=== PATIENT | male | born 1960 | race Caucasian/White ===

== ENCOUNTER 2019-03-12 14:56 | Emergency (ER) | payer MEDICARE, MEDICAID ==
[~2019-03-12] VITALS: Ht 167.6 cm; Wt 81.6 kg
[2019-03-12 15:05] VITALS: BP 127/66
[2019-03-12] MEDS ORDERED: SODIUM CHLORIDE 0.9% 500 ML IVB ONE (15:07)
[2019-03-12] MEDS ORDERED: ONDANSETRON HCL 4 MG/2 ML VIAL IV ONE (15:15)
[2019-03-12] MEDS ORDERED: MORPHINE SULFATE 4 MG/ML SYR/VIAL IV ONE (15:15)
[2019-03-12] MEDS ORDERED: FAMOTIDINE (10MG/ML) 2ML VL IV ONE (15:15)
[2019-03-12 15:48] LABS: Basophils # (auto) 0.1 uL; Eosinophils # (auto) 0 uL; Monocytes # (auto) 0.3 uL
[2019-03-12 15:51] LABS: Basophils % (auto) 0.6 % (0.0-2.0); Eosinophils % (auto) 0.1 % (0.0-7.0); Hematocrit 39.5 % (41.0-53.0); Hemoglobin 12.2 g/dL (13.5-17.5); Lymphocytes # (auto) 1.3 uL; Lymphocytes % (auto) 13.7 % (10.0-50.0); Mean Corpuscular Hemoglobin 21.4 pg (28.0-32.0); Mean Corpuscular Volume 69.2 fL (80.0-100.0); Monocytes % (auto) 3.4 % (0.0-12.0); Neutrophils # (auto) 7.6 uL; Neutrophils % (auto) 82.2 % (37.0-80.0); Platelet Count (auto) 255 10^3/uL (140-450); White Blood Cell 9.2 10^3/uL (4.4-10.8)
[2019-03-12 15:58] LABS: Red Cell Distribution Width 21.8 % (11.8-14.3)
[2019-03-12 16:08] LABS: Alanine Aminotransferase 25 U/L (16-61); Albumin 3.4 g/dL (3.4-5.0); Anion Gap 22 (5-15); Aspartate Aminotransferase 24 U/L (15-37); Blood Urea Nitrogen 14 mg/dL (7-18); Calcium 8.5 mg/dL (8.5-10.1); Carbon Dioxide 17 mmol/L (21-32); Chloride 99 mmol/L (98-107); Glucose 288 mg/dL (74-106); Lipase 20 U/L (73-393); Magnesium 1.8 mg/dL (1.6-2.6); Potassium 3.6 mmol/L (3.5-5.1); Sodium 138 mmol/L (136-145)
[2019-03-12 16:13] LABS: Alkaline Phosphatase 110 U/L (45-117); BUN/Creatinine Ratio 17.3; Bilirubin, Total 0.7 mg/dL (0.2-1.0); GFR African American 125 mL/min; GFR Non-African American 103 mL/min
== END 2019-03-12 20:35 | disposition left against medical advice (07) ==
LOC: ER 15:01
DX: R07.89 Other chest pain (principal); F10.20 Alcohol dependence, uncomplicated; E11.9 Type 2 diabetes mellitus without complications; E78.5 Hyperlipidemia, unspecified; I10 Essential (primary) hypertension; E07.9 Disorder of thyroid, unspecified; F17.210 Nicotine dependence, cigarettes, uncomplicated; Z53.29 Procedure and treatment not carried out because of patient's decision for other reasons
CPT/HCPCS: 36415; 71045; 74176; 80053; 80320; 83690; 83735; 84484; 85025; 93005; 94761

== ENCOUNTER 2019-08-08 17:04 | Inpatient (IN) | payer MEDICARE, MEDICAID ==
[~2019-08-08] VITALS: Ht 167.6 cm; Wt 80.6 kg
[2019-08-08] MEDS ORDERED: ONDANSETRON HCL 4 MG/2 ML VIAL IV ONE (17:45)
[2019-08-08] MEDS ORDERED: PANTOPRAZOLE 40 MG/10 ML VIAL INJ IV ONE (17:45)
[2019-08-08 18:02] LABS: Eosinophils # (auto) 0 uL; Hemoglobin 9.3 g/dL (13.5-17.5); Lymphocytes # (auto) 0.7 uL; Monocytes # (auto) 0.4 uL; Monocytes % (auto) 3.9 % (0.0-12.0); Neutrophils # (auto) 8.5 uL
[2019-08-08 18:04] LABS: Basophils # (auto) 0.1 uL; Basophils % (auto) 0.5 % (0.0-2.0); Eosinophils % (auto) 0.1 % (0.0-7.0); Hematocrit 30.5 % (41.0-53.0); Lymphocytes % (auto) 7.5 % (10.0-50.0); Mean Corpuscular Hemoglobin 24.3 pg (28.0-32.0); Mean Corpuscular Hgb Conc. 30.5 g/dL (32.0-36.0); Mean Corpuscular Volume 79.7 fL (80.0-100.0); Platelet Count (auto) 196 10^3/uL (140-450); Red Blood Cells 3.83 10^6/uL (4.5-5.90); Red Cell Distribution Width 20.3 % (11.8-14.3); White Blood Cell 9.7 10^3/uL (4.4-10.8)
[2019-08-08 18:17] LABS: Albumin 2.6 g/dL (3.4-5.0); Calcium 7.2 mg/dL (8.5-10.1); Potassium 4.3 mmol/L (3.5-5.1)
[2019-08-08 18:19] LABS: BUN/Creatinine Ratio 26.2
[2019-08-08 18:26] LABS: Total Protein 4.9 g/dL (6.4-8.2)
[2019-08-08] MEDS ORDERED: MORPHINE SULFATE 4 MG/ML SYR/VIAL IV ONE ×2 (18:45→21:00)
[2019-08-08] MEDS ORDERED: SODIUM CHLORIDE 0.9% 1,000 ML IV ONE ×2 (18:45→19:30)
[2019-08-08] MEDS ORDERED: InsuLIN R (HUMAN) 100 UNITS in SODIUM CHL 0.9% 99 ML IV SCH (21:11)
[2019-08-08] MEDS ORDERED: DEXTROSE (50%) 50ML SYRG IV PRN (21:15)
[2019-08-08] MEDS ORDERED: ONDANSETRON HCL 4 MG/2 ML VIAL IV PRN (21:15)
[2019-08-08] MEDS ORDERED: NITROGLYCERIN 0.4 MG SL TAB SL PRN (21:15)
[2019-08-08] MEDS: SODIUM CHLORIDE 0.9% 1,000 ML IV SCH (21:46)
[2019-08-08] MEDS: OCTREOTIDE ACETATE 500 MCG in SODIUM CHL 0.9% 99 ML IV SCH (22:14)
[2019-08-08] MEDS: ACCU-CHEK COMFORT CURVE STRIP VI SCH (22:17)
[2019-08-08 22:30] LABS: Hematocrit 26.9 % (41.0-53.0); Hemoglobin 8.2 g/dL (13.5-17.5)
[2019-08-08 22:35] LABS: BUN/Creatinine Ratio 29.9; Calcium 6.2 mg/dL (8.5-10.1); Potassium 4.8 mmol/L (3.5-5.1)
[2019-08-08] MEDS ORDERED: SODIUM BICARBONATE 8.4% INJ 50ML SYRINGE ONE (22:49)
[2019-08-08] MEDS ORDERED: CALCIUM GLUC 4.65meq/50ml D5AE 50 ML IV ONE (23:00)
[2019-08-08] MEDS ORDERED: DIGOXIN (250MCG/ML) 2 ML AMPULE IV ONE (23:45)
[2019-08-09] VITALS (22 sets, daily range): BP systolic 97–142; BP diastolic 51–82
[2019-08-09] MEDS: ACCU-CHEK COMFORT CURVE STRIP VI SCH ×8 (00:04→18:00)
[2019-08-09 01:11] LABS: Hematocrit 26.5 % (41.0-53.0); Hemoglobin 8.2 g/dL (13.5-17.5)
[2019-08-09] MEDS ORDERED: SODIUM CHLORIDE 0.9% 1,000 ML IV SCH ×2 (01:11→03:11)
[2019-08-09] MEDS: SODIUM CHLORIDE 0.9% 1,000 ML IV SCH ×2 (01:11→07:15)
[2019-08-09 01:24] LABS: INR 1.12 (0.9-1.15); Partial Thromboplastin Time 26.8 sec (23.64-32.05)
[2019-08-09 01:30] LABS: BUN/Creatinine Ratio 33.3; Calcium 6.6 mg/dL (8.5-10.1); Potassium 3.9 mmol/L (3.5-5.1)
[2019-08-09] MEDS ORDERED: InsuLIN R (HUMAN) 100 UNITS in SODIUM CHL 0.9% 99 ML IV SCH (01:43)
[2019-08-09] MEDS ORDERED: LORazepam 2MG/ML-1ML VIAL IV ONE (01:45)
[2019-08-09] MEDS ORDERED: LEVOFLOXACIN 500MG 100 ML IV ONE (02:00)
[2019-08-09] MEDS ORDERED: SODIUM CHLORIDE 0.9% 500 ML IV ONE (03:15)
[2019-08-09] MEDS ORDERED: SODIUM BICARBONATE 50ML VIAL 50 ML in SOD CHL 0.45% 1,000 ML IV SCH (03:15)
[2019-08-09] MEDS ORDERED: SODIUM BICARBONATE 50ML VIAL 50 ML in D5W/SOD CHL 0.45% 1,000 ML IV SCH (03:30)
[2019-08-09] MEDS ORDERED: SODIUM BICARBONATE 8.4 % INJ 50ML VIAL IV ONE (03:30)
--- NOTE | 2019-08-09 03:40 | NUR ---
Arrival note Pt arrived to ICU via gurney and placed in room 112. PT attached to ICU monitors. VS 97.5 oral, HR 115 a-fib, rr 20, spo2 96% on 3 lts nc, bp 125/76. Pt able to follow commands. PT can state name, and where pt is at currently. PT unable to provide any other information at this time. PT denies pain. Pt does not appear to be in any distress. PT arrived with blue sweatpants, reynolds t-shirt and poole shoes. All pt belongings at bedside at this time. Received pt on insulin gtt at 3units/hr, D5.45 ns with 1 amp bicarb at 75 mls/hr and sandostatin gtt at 10 mls/hr. Received pt with 18gauge left fa iv, and right hand 22 gauge. IV sites benign. Bed locked and in lowest position, safety precautions in place. Call light within reach, pt oriented to ICU nurse and surroundings. Will monitor pt carefully.
--- NOTE | 2019-08-09 05:24 | NUR ---
emergency contact Pt unable to provide information for emergency contact, states, "i cannot remember right now." Patient says he has no family in the area that can be contacted. No information listed in patient chart.
[2019-08-09 06:36] LABS: Basophils # (auto) 0 uL; Basophils % (auto) 0.1 % (0.0-2.0); Eosinophils # (auto) 0 uL; Hematocrit 22.5 % (41.0-53.0); Hemoglobin 7.2 g/dL (13.5-17.5); Lymphocytes # (auto) 0.2 uL; Lymphocytes % (auto) 1.3 % (10.0-50.0); Mean Corpuscular Hemoglobin 24.3 pg (28.0-32.0); Mean Corpuscular Hgb Conc. 32.2 g/dL (32.0-36.0); Mean Corpuscular Volume 75.4 fL (80.0-100.0); Monocytes # (auto) 0.5 uL; Monocytes % (auto) 2.8 % (0.0-12.0); Neutrophils # (auto) 17.7 uL; Neutrophils % (auto) 95.8 % (37.0-80.0); Nucleated Red Blood Cells % 0.1 %; Platelet Count (auto) 118 10^3/uL (140-450); Red Blood Cells 2.98 10^6/uL (4.5-5.90); White Blood Cell 18.4 10^3/uL (4.4-10.8)
[2019-08-09 06:39] LABS: Urine Bacteria FEW /hpf (None Seen); Urine Blood Negative /uL (Negative); Urine Hyaline Cast MANY /lpf (0 - 2); Urine Mucus FEW (None Seen); Urine WBC 3 /hpf (0 - 3)
[2019-08-09 06:41] LABS: Amphetamine Screen, Urine NEGATIVE (NEGATIVE); Barbiturate Scree,Urine POSITIVE (NEGATIVE); Benzodiazephine Screen, Urine NEGATIVE (NEGATIVE); Cannabinoid Screen, Urine NEGATIVE (NEGATIVE); Cocaine Screen, Urine NEGATIVE (NEGATIVE); Phencyclidine Screen, Urine NEGATIVE (NEGATIVE)
[2019-08-09 06:42] LABS: BUN/Creatinine Ratio 42.9; Calcium 6.6 mg/dL (8.5-10.1); Potassium 3.6 mmol/L (3.5-5.1)
[2019-08-09 06:49] LABS: Opiate Scree,Urine POSITIVE (NEGATIVE)
[2019-08-09] MEDS: OCTREOTIDE ACETATE 500 MCG in SODIUM CHL 0.9% 99 ML IV SCH (07:05)
--- NOTE | 2019-08-09 07:07 | NUR ---
Order from Hospitalist to transfuse 1 unit prbc and to stop Bicarb gtt. Will carry out orders.
[2019-08-09] MEDS ORDERED: CALCIUM GLUC 4.65meq/50ml D5AE 50 ML IV ONE (07:15)
[2019-08-09] MEDS ORDERED: VANCOMYCIN PER PHARMACY 0 MG IV SCH (07:15)
[2019-08-09] MEDS ORDERED: VANCOMYCIN 1,500 MG in D5W 5% 250 ML IV SCH (08:00)
--- NOTE | 2019-08-09 08:45 | NUR ---
RINA PICC LINE RN AT BEDSIDE INSERTING MIDLINE PER PROTOCOL, RN UNABLE TO GET AT LEAST 20 G FOR BLOOD PRODUCT AFTER 2 ATTEMPTS. Addendum: 08/09/19 at 1054 by Gilberto Reina RN PRBC STARTED IN 22 G TO RIGHT WRIST UNTIL MIDLINE IS INSERTED
--- NOTE | 2019-08-09 08:58 | NUR ---
Midline Placement: Patient educated on need for midline placement. All risks and benefits explained and all questions and concerns addresses prior to procedure. 18g/10cm midline inserted via left basilic vein using Ultrasound. Sterile technique utilized. Blood return obtained from lumen and flushed easily with NS using proper technique. Midline secured with saline lock; biodisc and occlusive dressing applied. Primary RN notified. Midline lot #[id number]
--- NOTE | 2019-08-09 09:00 | NUR ---
BLOOD PRODUCT INFUSING TO MIDLINE AT THIS TIME
[2019-08-09 09:31] LABS: BUN/Creatinine Ratio 37.6; Calcium 6.5 mg/dL (8.5-10.1); Potassium 3.9 mmol/L (3.5-5.1)
[2019-08-09] MEDS ORDERED: PANTOPRAZOLE 40 MG/10 ML VIAL INJ IV SCH (10:00)
--- NOTE | 2019-08-09 11:00 | NUR ---
1 UNIT PRBC COMPLETED WITHOUT ANY SIGNS/SYMPTOMS OF REACTION. PATIENT TOLERATED WELL.
[2019-08-09] MEDS ORDERED: LIDOCAINE VISCOUS 2% 15ML UD ONE (13:20)
[2019-08-09] MEDS ORDERED: MIDAZOLAM HCL 5 MG/ML-1ML VIAL ONE (13:20)
[2019-08-09] MEDS ORDERED: fentaNYL CITRATE 100 MCG/2 ML VL ONE (13:21)
[2019-08-09] MEDS ORDERED: diphenhdrAMINE HCL 50 MG/1 ML VL ONE (13:21)
[2019-08-09] MEDS ORDERED: DEXTROSE (50%) 50ML SYRG IV PRN (13:45)
--- NOTE | 2019-08-09 13:45 | NUR ---
DR RODRÍGUEZ AT BEDSIDE DURING RN LUNCH BREAK WITH ZAHRAA RN PROVIDING MEAL RELIEF AND OBTAINED ORDERS FROM DR RODRÍGUEZ.
--- NOTE | 2019-08-09 14:04 | NUR ---
DR TANG COMPLETED EGD. NEW ORDER FOR CLEAR LIQUID DIET AND DC SANDOSTATIN DRIP. PATIENT TOLERATED WELL BUT IS VERY SLEEPY AROUSABLE TO TOUCH, VS STABLE.
--- NOTE | 2019-08-09 14:15 | NUR ---
DECREASED DOPAMINE BY 1 MCG/KG/MIN DUE HR 110-112 WITH FREQUENT PVCS, DOPAMINE CURRENTLY AT 3 MCG/KG/MIN Addendum: 08/09/19 at 1436 by Gilberto Reina RN WRONG PATIENT
[2019-08-09 14:48] LABS: Hematocrit 23.5 % (41.0-53.0); Hemoglobin 7.7 g/dL (13.5-17.5)
[2019-08-09 15:00] LABS: Calcium 6.7 mg/dL (8.5-10.1); Potassium 3.5 mmol/L (3.5-5.1)
[2019-08-09] MEDS: InsuLIN REG 1unit/0.01ml Soln (100units/ml) SC SCH (18:30)
--- NOTE | 2019-08-09 19:00 | NUR ---
OPENING NOTE ASSUMED CARE OF PATIENT AT THIS TIME. REPORT RECEIVED FROM DAY SHIFT RN. POC REVIEWED. HEAD TO TOE ASSESSMENT COMPLETE, SEE INTERVENTION SPREADSHEET FOR COMPLETE DETAILS. RECEIVED PT ALERT AND ORIENTED. VSS EXCEPT HR LOW 100'S. IV SITE BENIGN. CALL LIGHT WITHIN REACH, URINAL AT BEDSIDE. PT SITTING UP IN BED EATING DINNER. PT ON CLEAR LIQUID DIET. PT TOLERATING WELL. BED LOCKED AND IN LOWEST POSITION, SAFETY PRECAUTIONS IN PLACE. WILL MONITOR PT CAREFULLY.
--- NOTE | 2019-08-09 19:25 | NUR ---
REPORT GIVEN TO CALE ADAMS
--- NOTE | 2019-08-09 20:01 | NUR ---
PT COMPLAINING OF SEVER ABD PAIN. ORDER RECEIVED FROM DR RODRÍGUEZ FOR 2 MG MORPHINE Q2 FOR SEVERE PAIN. WILL CARRY OUT ORDER.
--- NOTE | 2019-08-09 20:17 | NUR ---
OOB PT ASSISTED OOB TO USE BEDSIDE COMMODE. PT FLUSHED BEFORE WITNESSED BM. SMALL AMOUNT OF MAROON STOOL NOTED ON TOILET SEAT. PT BACK TO BED WITH NO INCIDENT.
[2019-08-09] MEDS: MORPHINE SULF INJ 2 MG/ML SYRINGE 1ML IV PRN (20:53)
--- NOTE | 2019-08-09 21:00 | NUR ---
PT COMPLAINING OF ABD PAIN 06/10. MORPHINE GIVEN ORDERED. SEE EMAR FOR PAIN REASSESSMENT
[2019-08-09] MEDS: PANTOPRAZOLE 40 MG TAB PO SCH (22:15)
[2019-08-10] VITALS (14 sets, daily range): BP systolic 121–145; BP diastolic 66–91
[2019-08-10] MEDS ORDERED: LEVOFLOXACIN 250MG 50 ML IV SCH
[2019-08-10] MEDS: ACCU-CHEK COMFORT CURVE STRIP VI SCH ×5 (00:04→23:19)
[2019-08-10] MEDS: InsuLIN REG 1unit/0.01ml Soln (100units/ml) SC SCH ×5 (00:04→23:28)
[2019-08-10] MEDS: MORPHINE SULF INJ 2 MG/ML SYRINGE 1ML IV PRN ×5 (01:25→20:10)
--- NOTE | 2019-08-10 01:26 | NUR ---
PT COMPLAINING OF ABD PAIN and back pain 08/10. MORPHINE GIVEN ORDERED. SEE EMAR FOR PAIN REASSESSMENT
[2019-08-10 04:29] LABS: Basophils # (auto) 0 uL; Basophils % (auto) 0.2 % (0.0-2.0); Eosinophils # (auto) 0 uL; Eosinophils % (auto) 0.1 % (0.0-7.0); Hematocrit 23.4 % (41.0-53.0); Hemoglobin 7.7 g/dL (13.5-17.5); Lymphocytes # (auto) 0.8 uL; Lymphocytes % (auto) 7.3 % (10.0-50.0); Mean Corpuscular Hemoglobin 25.3 pg (28.0-32.0); Mean Corpuscular Hgb Conc. 32.9 g/dL (32.0-36.0); Mean Corpuscular Volume 77.1 fL (80.0-100.0); Monocytes # (auto) 0.5 uL; Monocytes % (auto) 4.4 % (0.0-12.0); Neutrophils # (auto) 9.6 uL; Platelet Count (auto) 98 10^3/uL (140-450); Red Blood Cells 3.03 10^6/uL (4.5-5.90); White Blood Cell 10.9 10^3/uL (4.4-10.8)
[2019-08-10 04:47] LABS: Albumin 2.2 g/dL (3.4-5.0); Calcium 7.3 mg/dL (8.5-10.1); Magnesium 1.9 mg/dL (1.6-2.6); Potassium 3.1 mmol/L (3.5-5.1)
[2019-08-10 04:51] LABS: BUN/Creatinine Ratio 28.8; Bilirubin, Total 0.5 mg/dL (0.2-1.0); Total Protein 4.3 g/dL (6.4-8.2)
[2019-08-10] MEDS: SODIUM CHLORIDE 0.9% 1,000 ML IV SCH ×3 (05:34→20:10)
--- NOTE | 2019-08-10 07:20 | NUR ---
REPORT RECEIVED FROM BUSINESS APPLICATIONS SPECIALIST NURSE. PATIENT RESTING IN BED AT THIS TIME. RESPIRATIONS EVEN AND UNLABORED. PATIENT COMPLAINS OF PAIN 8/10 IN BACK, WILL REVIEW MEDICATIONS AND ADMINISTER PAIN MEDICATIONS ORDERED. CALL LIGHT IN REACH, BED IN LOW POSITION. WILL CONTINUE TO MONITOR.
[2019-08-10] MEDS: VANCOMYCIN 1,500 MG in D5W 5% 250 ML IV SCH ×2 (08:20→20:10)
--- NOTE | 2019-08-10 10:10 | NUR ---
DR TANG AT BEDSIDE TO ASSESS PATIENT AND DISCUSS PLAN OF CARE. MD AWARE OF HGB LEVEL, NO NEW ORDERS AT THIS TIME. CONTINUE TO MONITOR HGB. Addendum: 08/10/19 at 1350 by Kalyn Rose RN PER ADVANCE DIET ORDERED
[2019-08-10] MEDS: cefTRIAXone 1GM/50ML D5W 50 ML IV SCH (10:12)
[2019-08-10] MEDS: PANTOPRAZOLE 40 MG TAB PO SCH ×2 (10:12→23:19)
--- NOTE | 2019-08-10 11:09 | NUR ---
PAGED DR RODRÍGUEZ FOR POTASSIUM LEVEL 3.1 AWAITING CALL BACK.
[2019-08-10] MEDS: FOLIC ACID 1 MG, MULTIPLE VITAMIN 10 ML, MAGNESIUM SULF SDV 50% 8 MEQ, THIAMINE INJ 100... INJ SCH ×5 (11:58)
--- NOTE | 2019-08-10 13:02 | NUR ---
DR RODRÍGUEZ AT BEDSIDE TO ASSESS PATIENT AND DISCUSS PLAN OF CARE. PER MD PATIENT TO GO TO TELE. MD REVIEWED AND NOTIFIED OF LAB LEVELS. POTASSIUM REPLACEMENT NOTED IN CHART.
[2019-08-10] MEDS ORDERED: POTASSIUM CHLORIDE 40 MEQ, LIDOCAINE 1% (LOCAL ANESTH.) 4 ML in SODIUM CHL 0.9% 100 ML IV ONE (13:30)
--- NOTE | 2019-08-10 14:55 | NUR ---
REPORT GIVEN TO SYEDA ADAMS FROM TELEMETRY FLOOR. PATIENT TO GO TO ROOM 216B CONNECTED TO TELEMETRY BOX 33
--- NOTE | 2019-08-10 15:25 | NUR ---
TRANSFER PT TRANSFERRED VIA WHEELCHAIR TO ROOM 216B VIA WHEELCHAIR ON TELE BOX 33, PORTABLE O2 3L NC. RECEIVING NURSE SYEDA AT BEDSIDE. NO SIGNS OF DISTRESS NOTED.
--- NOTE | 2019-08-10 15:26 | NUR ---
ICU patient trans to floor JUAN CARLOS BERMAN transfered to 216 B via wheelchair with portable 02. All patient medications and personal belongings transferred with patient to receiving floor. Report receieved prior to arrival. Assuming care of patient at this time. Patient shows no signs or symptoms of shortness of breath or distress. Instructed patient on the continued plan of care. Will continue to round hourly and as needed.
--- NOTE | 2019-08-10 19:04 | NUR ---
Closing Shift Note Patient is resting in bed. Patient shows no signs or symptoms of distress. Report given to Celso, night assistant RN. Will endorse care to ANGIE Houston.
[2019-08-11] MEDS: MORPHINE SULF INJ 2 MG/ML SYRINGE 1ML IV PRN ×4 (02:14→20:20)
[2019-08-11 05:00] VITALS: BP 129/87
[2019-08-11 05:25] LABS: Albumin 2.4 g/dL (3.4-5.0); BUN/Creatinine Ratio 10.7; Calcium 7.6 mg/dL (8.5-10.1); Potassium 3.3 mmol/L (3.5-5.1)
[2019-08-11 05:27] LABS: Bilirubin, Total 0.4 mg/dL (0.2-1.0); Total Protein 4.7 g/dL (6.4-8.2)
[2019-08-11] MEDS: InsuLIN REG 1unit/0.01ml Soln (100units/ml) SC SCH ×3 (06:29→18:04)
[2019-08-11] MEDS: ACCU-CHEK COMFORT CURVE STRIP VI SCH ×3 (06:29→17:44)
--- NOTE | 2019-08-11 07:30 | NUR ---
Opening Shift Note Assuming care of patient at this time. Patient is awake and alert. Patient shows no signs or symptoms of distress or shortness of breath. Bed is locked and lowered with side rails up x2. Instructed patient on the plan of care for today and to call for assistance as needed. Call light within reach. Will continue to round hourly and as needed.
[2019-08-11] MEDS: VANCOMYCIN 1,500 MG in D5W 5% 250 ML IV SCH ×2 (08:30→20:21)
--- NOTE | 2019-08-11 08:40 | NUR ---
Dr. Alvarez at bedside Dr. Alvarez at bedside discussing plan of care with patient. Will continue to monitor electrolytes and CBC.
[2019-08-11 08:44] LABS: Basophils # (auto) 0 uL; Hematocrit 26.2 % (41.0-53.0); Hemoglobin 8.6 g/dL (13.5-17.5); Monocytes # (auto) 0.5 uL; Platelet Count (auto) 121 10^3/uL (140-450)
[2019-08-11] MEDS ORDERED: POTASSIUM CHLORIDE 40 MEQ, LIDOCAINE 1% (LOCAL ANESTH.) 4 ML in SODIUM CHL 0.9% 100 ML IV ONE (08:45)
[2019-08-11 08:46] LABS: Basophils % (auto) 0.3 % (0.0-2.0); Eosinophils # (auto) 0.1 uL; Eosinophils % (auto) 0.9 % (0.0-7.0); Lymphocytes # (auto) 0.9 uL; Lymphocytes % (auto) 13.9 % (10.0-50.0); Mean Corpuscular Hemoglobin 25.7 pg (28.0-32.0); Monocytes % (auto) 7.3 % (0.0-12.0); Neutrophils # (auto) 5.3 uL; Neutrophils % (auto) 77.6 % (37.0-80.0); Nucleated Red Blood Cells % 0.1 %; Red Blood Cells 3.36 10^6/uL (4.5-5.90); Red Cell Distribution Width 20.4 % (11.8-14.3); White Blood Cell 6.8 10^3/uL (4.4-10.8)
[2019-08-11 08:48] VITALS: BP 144/77
[2019-08-11] MEDS: SODIUM CHLORIDE 0.9% 1,000 ML IV SCH ×2 (09:15→22:05)
--- NOTE | 2019-08-11 09:40 | NUR ---
Re: Lab results Call to Dr. Alvarez's office at this time regarding patient's updated lab results. Left a message with office staff. She will give message to Dr. Alvarez. Left callback information if needed.
[2019-08-11] MEDS: PANTOPRAZOLE 40 MG TAB PO SCH ×2 (10:10→22:26)
[2019-08-11] MEDS: cefTRIAXone 1GM/50ML D5W 50 ML IV SCH (11:26)
[2019-08-11 13:00] VITALS: BP 144/72
--- NOTE | 2019-08-11 13:10 | NUR ---
assessment Patient is a 59 year old male who is alert and oriented. Prior to admission patient lived home alone and functioned independently. Patient informed me he is able to care for his own ADLs. Per patient he will return home to his prior living arrangements post discharge and will have transport home. Patient informed me he has a wheelchair and a fww at home if he needs it. Patient informed me his PCP is Dr Michelle Alvarez. Patient informed me he has home health, but does not remember the name. Patients post discharge needs to be determined after PT evaluation. I informed patient he has a right to speak to a social science instructor regarding all care. I informed patient he has a right to participate in any and all discharge planning. Patient does not have a POA and advanced directive. I have offered patient information on POA and advanced directives. I informed the patient the advantages and benefits of having an Advanced Directive. Patient verbalized understanding and agreed to discharge plan. Addendum: 08/11/19 at 1341 by Susi SWANSON Amended: Links added.
[2019-08-11] MEDS: FOLIC ACID 1 MG, MULTIPLE VITAMIN 10 ML, MAGNESIUM SULF SDV 50% 8 MEQ, THIAMINE INJ 100... INJ SCH ×5 (13:33)
[2019-08-11 17:50] VITALS: BP 134/86
--- NOTE | 2019-08-11 19:05 | NUR ---
Closing Shift Note Patient is resting in bed. Patient shows no signs or symptoms of distress. Report given to Celso, seafood processor RN. Will endorse care to ANGIE Houston.
[2019-08-11 22:00] VITALS: BP 136/95
[2019-08-11] MEDS: LORazepam 2MG/ML-1ML VIAL IV PRN (22:16)
[2019-08-12] MEDS: InsuLIN REG 1unit/0.01ml Soln (100units/ml) SC SCH ×5 (00:42→21:22)
[2019-08-12] MEDS: ACCU-CHEK COMFORT CURVE STRIP VI SCH ×5 (00:42→21:22)
[2019-08-12 05:41] VITALS: BP 129/85
[2019-08-12 06:49] LABS: Basophils # (auto) 0 uL; Eosinophils # (auto) 0.1 uL; Monocytes # (auto) 0.4 uL; Neutrophils # (auto) 4.8 uL; Nucleated Red Blood Cells % 0.1 %
[2019-08-12 06:55] LABS: Basophils % (auto) 0.4 % (0.0-2.0); Eosinophils % (auto) 1.2 % (0.0-7.0); Hematocrit 25.7 % (41.0-53.0); Hemoglobin 8.6 g/dL (13.5-17.5); Lymphocytes # (auto) 0.7 uL; Lymphocytes % (auto) 11.3 % (10.0-50.0); Mean Corpuscular Hemoglobin 26.1 pg (28.0-32.0); Mean Corpuscular Hgb Conc. 33.2 g/dL (32.0-36.0); Mean Corpuscular Volume 78.6 fL (80.0-100.0); Monocytes % (auto) 6.4 % (0.0-12.0); Neutrophils % (auto) 80.7 % (37.0-80.0); Platelet Count (auto) 134 10^3/uL (140-450); Red Blood Cells 3.28 10^6/uL (4.5-5.90)
[2019-08-12 07:02] LABS: Albumin 2.3 g/dL (3.4-5.0); BUN/Creatinine Ratio 12.3; Calcium 7.3 mg/dL (8.5-10.1); Magnesium 1.8 mg/dL (1.6-2.6); Potassium 3.5 mmol/L (3.5-5.1)
[2019-08-12 07:05] LABS: Bilirubin, Total 0.4 mg/dL (0.2-1.0); Total Protein 4.7 g/dL (6.4-8.2)
[2019-08-12 07:06] LABS: Red Cell Distribution Width 20.6 % (11.8-14.3)
--- NOTE | 2019-08-12 08:10 | NUR ---
OPENING SHIFT NOTE: PATIENT RESTING IN BED, EVEN AN UNLABORED RESPIRATIONS NOTED. FALL PRECAUTIONS IN PLACE. CALL LIGHT WITHIN REACH. WILL CONTINUE TO MONITOR.
[2019-08-12] MEDS: VANCOMYCIN 1,500 MG in D5W 5% 250 ML IV SCH ×2 (08:39→20:01)
[2019-08-12 09:00] VITALS: BP 137/95
[2019-08-12] MEDS: cefTRIAXone 1GM/50ML D5W 50 ML IV SCH (09:46)
[2019-08-12] MEDS: PANTOPRAZOLE 40 MG TAB PO SCH ×2 (09:46→21:21)
[2019-08-12] MEDS: SODIUM CHLORIDE 0.9% 1,000 ML IV SCH (09:47)
--- NOTE | 2019-08-12 10:25 | NUR ---
PATIENT AMBULATING AROUND UNIT.
--- NOTE | 2019-08-12 11:25 | NUR ---
Nutrition Assessment Notes please see attached link for complete assessment Est. Needs BW 80k-1999kcal (23-25 kcal/kgBW), 80-88 gms pro (1.0-1.1 gms/kgBW). Will continue to monitor pertinent labs and reassess nutrient need prn Addendum: 08/12/19 at [address] Amended: Links added.
[2019-08-12 13:00] VITALS: BP 127/79
[2019-08-12] MEDS: FOLIC ACID 1 MG, MULTIPLE VITAMIN 10 ML, MAGNESIUM SULF SDV 50% 8 MEQ, THIAMINE INJ 100... INJ SCH ×5 (14:02)
--- NOTE | 2019-08-12 14:41 | NUR ---
MIDLINE DRESSING CHANGED PER PROTOCOL.
--- NOTE | 2019-08-12 15:35 | NUR ---
CALL FROM PHARMACY WITH RECOMMENDATIONS TO DC ANTIBIOTICS.
--- NOTE | 2019-08-12 16:01 | NUR ---
PATIENT AMBULATING IN THE UNIT. EVEN AND UNLABORED RESPIRATIONS NOTED.
[2019-08-12] MEDS: MORPHINE SULF INJ 2 MG/ML SYRINGE 1ML IV PRN ×2 (16:44→21:21)
[2019-08-12 17:00] VITALS: BP 154/79
--- NOTE | 2019-08-12 18:33 | NUR ---
CLOSING SHIFT NOTE: PATIENT RESTING IN BED. EVEN AND UNLABORED RESPIRATIONS NOTED NO SIGNS OF DISTRESS. EDUCATED POLITICAL REPORTER LIGHT WITHIN REACH, PATIENT VERBALIZED UNDERSTANDING. WILL ENDORSE CARE TO NOC RN.
--- NOTE | 2019-08-12 19:24 | NUR ---
CARE ENDORSED TO ISAK ADAMS.
--- NOTE | 2019-08-12 19:55 | NUR ---
Opening Shift Note Assumed care of patient, awake and alert up and No S/S of distress/SOB or pain. Instructed on POC and to call for assist PRN, will continue to monitor for changes Q1hr and PRN.
[2019-08-12] MEDS: LORazepam 2MG/ML-1ML VIAL IV PRN (20:15)
--- NOTE | 2019-08-12 20:54 | NUR ---
Requested to check his bklood sugar early and bed time med. so that he can have snack and able to sleep.
--- NOTE | 2019-08-12 20:57 | NUR ---
Patient has a pain of 8/10 in his stomach, but refused morphine, said he will just call.
[2019-08-12 21:27] VITALS: BP 133/78
[2019-08-13] MEDS: MORPHINE SULF INJ 2 MG/ML SYRINGE 1ML IV PRN ×2 (01:14→13:02)
[2019-08-13 05:10] VITALS: BP 150/85
[2019-08-13 05:31] LABS: Basophils # (auto) 0 uL; Basophils % (auto) 0.4 % (0.0-2.0); Eosinophils # (auto) 0.1 uL; Eosinophils % (auto) 1.3 % (0.0-7.0); Hematocrit 25.2 % (41.0-53.0); Hemoglobin 8.3 g/dL (13.5-17.5); Mean Corpuscular Volume 78.8 fL (80.0-100.0); Monocytes # (auto) 0.5 uL; Monocytes % (auto) 8.1 % (0.0-12.0); Neutrophils # (auto) 4.3 uL; Neutrophils % (auto) 73.2 % (37.0-80.0); Nucleated Red Blood Cells % 0.1 %; Platelet Count (auto) 160 10^3/uL (140-450); White Blood Cell 5.9 10^3/uL (4.4-10.8)
[2019-08-13 05:32] LABS: Red Cell Distribution Width 20.9 % (11.8-14.3)
[2019-08-13] MEDS: InsuLIN REG 1unit/0.01ml Soln (100units/ml) SC SCH ×2 (05:51→12:41)
[2019-08-13] MEDS: ACCU-CHEK COMFORT CURVE STRIP VI SCH ×2 (05:51→12:25)
[2019-08-13] MEDS: SODIUM CHLORIDE 0.9% 1,000 ML IV SCH ×2 (05:57→12:02)
[2019-08-13 06:16] LABS: Albumin 2.5 g/dL (3.4-5.0); BUN/Creatinine Ratio 13.6; Bilirubin, Total 0.4 mg/dL (0.2-1.0); Total Protein 4.8 g/dL (6.4-8.2)
--- NOTE | 2019-08-13 06:50 | NUR ---
Lior of heart rate of 138, back to 118, patient saw him walking.
--- NOTE | 2019-08-13 07:04 | NUR ---
Report given to Lyle Sanford, patient is resting .
--- NOTE | 2019-08-13 07:05 | NUR ---
OPENING SHIFT NOTE: PATIENT AWAKE, AMBULATING IN THE UNIT WITH IV POLE. BREATHING EVEN AND UNLABORED. ADDRESSED CONCERNS, AND UPDATED WITH PLAN OF CARE. PATIENT VERBALIZED UNDERSTANDING. WILL CONTINUE TO MONITOR.
[2019-08-13 07:58] LABS: Potassium 4.4 mmol/L (3.5-5.1)
[2019-08-13] MEDS: VANCOMYCIN 1,500 MG in D5W 5% 250 ML IV SCH (08:46)
[2019-08-13 09:00] VITALS: BP 151/74
[2019-08-13] MEDS: cefTRIAXone 1GM/50ML D5W 50 ML IV SCH (09:55)
[2019-08-13] MEDS: LORazepam 2MG/ML-1ML VIAL IV PRN (09:55)
[2019-08-13] MEDS: PANTOPRAZOLE 40 MG TAB PO SCH (09:55)
[2019-08-13] MEDS: FOLIC ACID 1 MG, MULTIPLE VITAMIN 10 ML, MAGNESIUM SULF SDV 50% 8 MEQ, THIAMINE INJ 100... INJ SCH ×5 (12:03)
[2019-08-13 13:00] VITALS: BP 149/83
[2019-08-13] MEDS ORDERED: INSULIN LANTUS (GLARGINE) 1 /0.01ml (100units/ml) SC ONE (13:15)
--- NOTE | 2019-08-13 13:44 | NUR ---
MD RODRÍGUEZ ROUNDING. ORDERS GIVEN. THIS RN TO RE-CHECK BLOOD SUGAR BEFORE DISCHARGE AT 14:30. OKAY TO DC IF SUGAR LESS THAN 300.
--- NOTE | 2019-08-13 14:53 | NUR ---
BLOOD SUGAR 270. PATIENT CALLED FAMILY FOR NURSING PROGRAM CHAIR.
--- NOTE | 2019-08-13 15:15 | NUR ---
PATIENT DISCHARGED HOME. PATIENT EDUCATED ON IMPORTANCE OF FOLLOW UP APPOINTMENT WITH DR. RODRÍGUEZ IN 1 WEEK. PATIENT VERBALIZED UNDERSTANDING. ALL EDUCATION MATERIALS GIVEN TO PATIENT. PATIENT LEFT WITH ALL BELONGINGS. MIDLINE IN LEFT UPPER ARM REMOVED, CATHETER INTACT, MANUAL PRESSURE APPLIED. TELE BOX SENT TO CARDIO UNIT. PATIENT AMBULATED OUT, EVEN AND UNLABORED RESPIRATIONS NOTED NO SIGNS OF DISTRESS.
== END 2019-08-13 15:35 | disposition home or self-care (01) | DRG 432 ==
LOC: ER 17:04 → OVERFLOW 17:05 → ICU WEST 08-09 03:41 → TELE-CENTR 08-10 15:25
PROVIDERS: ADMIT Nurse Practitioner; ATTEND Internal Medicine
PROC: 0DJ08ZZ Inspection of Upper Intestinal Tract, Via Natural or Artificial Opening Endoscopic (ICD-10-PCS; principal; 2019-08-09 13:15)
DX: K70.9 Alcoholic liver disease, unspecified (principal); E11.10 Type 2 diabetes mellitus with ketoacidosis without coma; N17.0 Acute kidney failure with tubular necrosis; K25.4 Chronic or unspecified gastric ulcer with hemorrhage; E43 Unspecified severe protein-calorie malnutrition; K29.81 Duodenitis with bleeding; E87.1 Hypo-osmolality and hyponatremia; E11.65 Type 2 diabetes mellitus with hyperglycemia; E87.8 Other disorders of electrolyte and fluid balance, not elsewhere classified; F17.210 Nicotine dependence, cigarettes, uncomplicated; I10 Essential (primary) hypertension; E86.0 Dehydration; K20.9 Esophagitis, unspecified; K44.9 Diaphragmatic hernia without obstruction or gangrene; D64.9 Anemia, unspecified; E03.9 Hypothyroidism, unspecified; E78.5 Hyperlipidemia, unspecified; E11.40 Type 2 diabetes mellitus with diabetic neuropathy, unspecified; F10.229 Alcohol dependence with intoxication, unspecified; I25.10 Atherosclerotic heart disease of native coronary artery without angina pectoris; Z79.4 Long term (current) use of insulin; Z87.11 Personal history of peptic ulcer disease; Z68.28 Body mass index [BMI] 28.0-28.9, adult; Z91.19 Patient's noncompliance with other medical treatment and regimen
CPT/HCPCS: 36415; 36430; 36600; 43235; 74176; 80048; 80053; 80202; 80307; 80320; 81001; 82010; 82140; 82805; 82962; 83605; 83735; 83930; 85014; 85018; 85025; 85610; 85730; 86850; 86900; 86901; 86920; 87040; 87081; 93005; 96361; 96365; 96375; C9113; G0378; J0610; J0696; J1815; J1956; J2001; J2250; J2405; J7060